=== PATIENT | female | born 1965 | race Caucasian/White ===

== ENCOUNTER → 2017-02-02 | Outpatient (CLI) | payer BC ==
--- NOTE | 2017-02-06 08:27 | MM ---
Reason for exam: screening (asymptomatic). Last mammogram was performed 1 year and 10 months ago. Physical Findings: A clinical breast exam by your physician is recommended on an annual basis and results should be correlated with mammographic findings. MG Screening Mammo w CAD Bilateral CC and MLO view(s) were taken. Prior study comparison: March 24, 2015, bilateral MG screening mammo w CAD. January 22, 2014, bilateral MG foundation screening mammo. The breast tissue is heterogeneously dense. This may lower the sensitivity of mammography. No significant changes when compared with prior studies. ASSESSMENT: Benign, BI-RAD 2 RECOMMENDATION: Routine screening mammogram of both breasts in 1 year.
== END | disposition home or self-care (01) ==
LOC: RADMAMWWP 12:56
PROVIDERS: ATTEND Family Medicine
DX: Z12.31 Encounter for screening mammogram for malignant neoplasm of breast (principal)

== ENCOUNTER 2017-08-31 13:32 | Observation (INO) | payer BC ==
[2017-08-31 14:16] LABS: Basophils % (A) 0 %; Eosinophils % (A) 1 %; HCT 41.5 % (34.0-46.0); HGB 14.2 gm/dL (11.4-16.0); Lymphocytes # (A) 1.2 k/uL (1.0-4.8); Lymphocytes % (A) 14 %; MCH 30.5 pg (25.0-35.0); MCHC 34.2 g/dL (31.0-37.0); MCV 89.1 fL (80.0-100.0); Mean Platelet Volume 6.7; Monocytes # (A) 0.2 k/uL (0-1.0); Monocytes % (A) 3 %; Neutrophils # (A) 7.1 k/uL (1.3-7.7); Neutrophils % (A) 83 %; Platelet Count 259 k/uL (150-450); RBC 4.65 m/uL (3.80-5.40); RDW 13.5 % (11.5-15.5); WBC 8.6 k/uL (3.8-10.6)
[2017-08-31 14:26] LABS: ALT 33 U/L (9-52); AST 22 U/L (14-36); Albumin 4.5 g/dL (3.5-5.0); Alkaline Phosphatase 49 U/L (38-126); Anion Gap 13 mmol/L; Blood Urea Nitrogen 13 mg/dL (7-17); Calcium 9.8 mg/dL (8.4-10.2); Carbon Dioxide 25 mmol/L (22-30); Chloride 101 mmol/L (98-107); Glucose 102 mg/dL (74-99); Sodium 139 mmol/L (137-145); Total Bilirubin 0.5 mg/dL (0.2-1.3); Total Protein 7.3 g/dL (6.3-8.2)
[2017-08-31 14:34] LABS: Creatine Kinase 82 U/L (30-135)
[2017-08-31 14:36] LABS: Partial Thromboplastin Time 23.4 sec (22.0-30.0)
[2017-08-31 14:47] LABS: Creatine Kinase MB 0.5 ng/mL (0.0-2.4); Troponin I <0.012 ng/mL (0.000-0.034)
--- NOTE | 2017-08-31 16:27 | XR ---
EXAMINATION TYPE: XR chest 2V DATE OF EXAM: 08/31/2017 COMPARISON: NONE HISTORY: Chest pain TECHNIQUE: Frontal and lateral views of the chest are obtained. FINDINGS: There is no focal air space opacity, pleural effusion, or pneumothorax seen. The cardiac silhouette size is within normal limits. The osseous structures are intact. And minimal multilevel degenerative change of the thoracic spine is noted. IMPRESSION: No acute cardiopulmonary process.
[2017-08-31] MEDS ORDERED: cloNIDine HCL 0.2 MG TAB PO STA (16:38)
--- NOTE | 2017-08-31 16:39 | ED ---
Chest Pain HPI - General Chief Complaint: Chest Pain Stated Complaint: High BP/chest pressure-sent by [facility] Time Seen by Provider: 08/31/17 15:23 Source: patient, RN notes reviewed, old records reviewed Mode of arrival: wheelchair Limitations: no limitations - History of Present Illness Initial Comments: 51-year-old female presents emergency room today chief complaint of feeling like there is a heaviness on her chest. She reports it started this morning at 9 AM. She states that she is went throughout her day and visited with friends. Continue to have this feeling like there was a hand sitting on her chest. She went to [employer] she sent her here. She reports she is a history of high blood pressure. Family history of heart disease. Nonsmoker. Patient has been taking her blood pressure medication as prescribed. She reports that she felt like she had remind herself to take breasts however she denies any shortness of breath or any nausea or vomiting or diaphoresis. She reports that she's been having occasional fluttering sensations in her chest. - Related Data Home Medications Medication Instructions Recorded Confirmed Metoprolol Tartrate 25 mg PO HS 03/04/15 08/31/17 Ergocalciferol [Vitamin D2] 50,000 unit PO MO 08/31/17 08/31/17 [place]-3 Fatty Acids/Fish Oil [Fish 1 cap PO DAILY 08/31/17 08/31/17 Oil 1,000 mg Softgel] Rosuvastatin Calcium [Crestor] 5 mg PO HS 08/31/17 08/31/17 Allergies Allergy/AdvReac Type Severity Reaction Status Date / Time No Known Allergies Allergy Verified 08/31/17 15:56 Review of Systems ROS Statement: Those systems with pertinent positive or pertinent negative responses have been documented in the HPI. ROS Other: All systems not noted in ROS Statement are negative. EKG Findings - EKG Comments: EKG Findings:: Normal sinus rhythm. Normal EKG. Ventricular rate of 72 bpm. ME interval is 198. QRS duration 92. QTQTC is 400/4:30 milliseconds. No evidence of ST elevation or T-wave inversion. Past Medical History Past Medical History: GERD/Reflux History of Any Multi-Drug Resistant Organisms: None Reported Past Surgical History: Section, Orthopedic Surgery Past Psychological History: No Psychological Hx Reported Smoking Status: Never smoker Past Alcohol Use History: Rare Past Drug Use History: None Reported General Exam - General Exam Comments Initial Comments: 51-year-old female. Alert and oriented. Limitations: no limitations General appearance: alert, in no apparent distress Head exam: Present: atraumatic, normocephalic, normal inspection Eye exam: Present: normal appearance, PERRL, EOMI. Absent: scleral icterus, conjunctival injection, periorbital swelling ENT exam: Present: normal exam, mucous membranes moist Neck exam: Present: normal inspection Respiratory exam: Present: normal lung sounds bilaterally. Absent: respiratory distress, wheezes, rales, rhonchi, stridor Cardiovascular Exam: Present: regular rate, normal rhythm, normal heart sounds. Absent: systolic murmur, diastolic murmur, rubs, gallop, clicks GI/Abdominal exam: Present: soft, normal bowel sounds. Absent: distended, tenderness, guarding, rebound, rigid Extremities exam: Present: normal inspection, full ROM, normal capillary refill. Absent: tenderness, pedal edema, joint swelling, calf tenderness Back exam: Present: normal inspection Neurological exam: Present: alert, oriented X3, CN II-XII intact Course Vital Signs 08/31/17 08/31/17 08/31/17 13:42 16:13 17:00 Temperature 98.2 F Pulse Rate 73 75 68 Respiratory 20 20 20 Rate Blood Pressure 181/84 269/84 180/90 O2 Sat by Pulse 99 98 100 Oximetry 08/31/17 08/31/17 08/31/17 17:30 18:00 18:53 Temperature 98.4 F Pulse Rate 72 79 71 Respiratory 20 20 20 Rate Blood Pressure 182/87 175/70 120/67 O2 Sat by Pulse 100 100 99 Oximetry Chest Pain MDM - MDM 51-year-old female presents raise her to plan of chest pain. She reports that there is pressure some his hand resting on her heart for the past day. The second EKG shows no acute changes. Initial cardiac enzymes are normal. She did have a history of protocol. We repeated a troponin when she came back to emergency room. This was also negative. Patient continues to complain of some minor discomfort in the chest. I discussed with history of hypertension and family history of heart disease she has risk factors for further evaluation for her heart. Discussed case with Dr. Kramer. He discussed with patient's PCP Dr. Werner. Magda the patient for observation. Repeat troponins. Consult to cardiology. Disposition Clinical Impression: Hypertension, Chest pain Disposition: ADMITTED IP TO THIS HOSP Condition: Stable Is patient prescribed a controlled substance at d/c from ED?: No If prescribed controlled substance>3 days was MAPS reviewed?: No When asked, does pt state using other controlled substances?: No Time of Disposition: 18:42
[2017-08-31] MEDS: SODIUM CHLORIDE 0.9% 1,000 ML IV SCH (17:06)
[2017-08-31] MEDS ORDERED: NALOXONE 0.4 MG/ML 1 ML VIAL IV PRN (18:43)
[2017-08-31] MEDS ORDERED: KETOROLAC 30 MG/ML 1 ML VIAL IVP PRN (18:43)
[2017-08-31] MEDS ORDERED: MORPHINE SULFATE 4 MG/ML SYRINGE IV PRN (18:43)
[2017-08-31] MEDS ORDERED: IBUPROFEN 400 MG TAB PO PRN (18:43)
[2017-08-31] MEDS ORDERED: LORazepam 2 MG/ML INJ IV PRN (18:43)
[2017-08-31] MEDS ORDERED: ACETAMINOPHEN TAB 325 MG TAB PO PRN (18:43)
[2017-08-31] MEDS ORDERED: ONDANSETRON 4 MG/2 ML VIAL IVP PRN (18:43)
[2017-08-31] MEDS ORDERED: METOPROLOL TARTRATE 25 MG TAB PO SCH (21:00)
[2017-08-31] MEDS ORDERED: ATORVASTATIN 10 MG TAB PO SCH (21:00)
[2017-09-01 03:21] LABS: Creatine Kinase 61 U/L (30-135)
[2017-09-01 03:34] LABS: Creatine Kinase MB 0.3 ng/mL (0.0-2.4); Troponin I <0.012 ng/mL (0.000-0.034)
[2017-09-01] MEDS: SODIUM CHLORIDE 0.9% 1,000 ML IV SCH (05:30)
[2017-09-01 08:01] VITALS: RESP 16
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
[2017-09-01] MEDS ORDERED: PANTOPRAZOLE 40 MG/10 ML VIAL IV SCH (09:00)
[2017-09-01] MEDS ORDERED: NON-FORMULARY DRUG (Omega-3 Fatty Acids/Fish Oil [Fish Oil 1,000 Mg Softgel] 1 CAP) PO SCH (09:00)
[2017-09-01] MEDS ORDERED: LOSARTAN 50 MG TAB PO SCH (09:00)
--- NOTE | 2017-09-01 09:43 | ECHOF ---
Referral Reason: MEASUREMENTS -------- HEIGHT: 157.5 cm WEIGHT: 81.6 kg BP: 144/81 IVSd: 1.1 cm (0.6 - 1.1) LVIDd: 3.0 cm (3.9 - 5.3) LVPWd: 1.1 cm (0.6 - 1.1) IVSs: 1.4 cm LVIDs: 2.0 cm LVPWs: 1.4 cm LAESV Index (A-L): 19.88 ml/m Ao Diam: 3.4 cm (2.0 - 3.7) AV Cusp: 2.3 cm (1.5 - 2.6) LA Diam: 2.4 cm (2.7 - 3.8) MV EXCURSION: 13.189 mm (> 18.000) MV EF SLOPE: 81 mm/s (70 - 150) EPSS: 0.3 cm MV E Akash: 0.76 m/s MV DecT: 181 ms MV A Akash: 1.12 m/s MV E/A Ratio: 0.68 RAP: 5.00 mmHg RVSP: 11.05 mmHg FINDINGS -------- Sinus rhythm. This was a technically good study. The left ventricular size is normal. Left ventricular wall thickness is normal. Overall left vent ricular systolic function is normal with, an EF between 55 - 60 %. The right ventricle is normal in size and function. The left atrium is normal in size. The right atrium is normal in size. The aortic valve is trileaflet, and appears structurally normal. No aortic stenosis or regurgitation. Mild mitral regurgitation is present. Trace tricuspid regurgitation present. The right ventricular systolic pressure, as measured by Dopp ler, is 11.05mmHg. Pulmonic valve appears structurally normal. The aortic root size is normal. The pericardium is normal. CONCLUSIONS -------- 1. Sinus rhythm. 2. This was a technically good study. 3. The left ventricular size is normal. 4. Left ventricular wall thickness is normal. 5. Overall left ventricular systolic function is normal with, an EF between 55 - 60 %. 6. The right ventricle is normal in size and function. 7. The left atrium is normal in size. 8. The right atrium is normal in size. 9. The aortic valve is trileaflet, and appears structurally normal. No aortic stenosis or regurgitati on. 10. Mild mitral regurgitation is present. 11. Trace tricuspid regurgitation present. 12. The right ventricular systolic pressure, as measured by Doppler, is 11.05mmHg. 13. Pulmonic valve appears structurally normal. 14. The aortic root size is normal. 15. The pericardium is normal. HIM CLERK: Debbie Ross RDCS
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
[2017-09-01] MEDS ORDERED: MORPHINE ORAL SOLN 10 MG/5 ML CUP PO PRN (10:25)
[2017-09-01 11:47] VITALS: BP 115/72; PULSE 62; TEMP 97.5
[2017-09-04] MEDS ORDERED: ERGOCALCIFEROL 50,000 UNIT CAP PO SCH (12:00)
--- NOTE | 2017-09-27 16:02 | HP ---
HISTORY AND PHYSICAL HISTORY AND PHYSICAL AND DISCHARGE SUMMARY: DATE OF ADMISSION: 08/31/2017 through the emergency department. DATE PATIENT WAS SEEN AND DISCHARGED: 09/01/2017 Patient is a pleasant 51-year-old white female who was admitted through the hospital emergency room and sent by [facility]. The patient apparently was having a knife-like feeling and heaviness in her chest since 9 a.m. and she went throughout the day and this continued. It was like someone was sitting on her chest when she thought she should go to the urgent care setting. They saw her and reported that she had elevated blood pressure with family history of heart disease. They sent her to the emergency department for further evaluation. She denied any shortness of breath, nausea, vomiting, diaphoresis. She has had flutters in the past but has not had any recent reported problems. MEDICATIONS: Her medications include: 1. Metoprolol. 2. Vitamin D. 3. Fish oil. 4. Crestor. ALLERGIES: NO KNOWN DRUG ALLERGIES. PAST MEDICAL HISTORY: 1. Gastroesophageal reflux disease. 2. Hypertension. 3. Hyperlipidemia. SOCIAL: She denies any smoking. Rare use of alcohol. Denies any drugs. PSYCHOLOGICAL: She denies any reported history of anxiety or panic attacks. REVIEW OF SYSTEMS: She denies any abdominal pain. She denies any stroke or paralysis. Review of systems is otherwise unremarkable. PHYSICAL EXAMINATION: Patient is alert and oriented x3. HEENT: Head is normocephalic and atraumatic. NECK: Supple. No JVD. HEART: Regular rate and rhythm. LUNGS: Clear to auscultation. ABDOMEN: Soft, nontender. No rebound, rigidity, guarding. EXTREMITIES: No cyanosis, clubbing or jaundice. NEUROLOGICAL: Cranial nerves 2 through 12 are grossly intact. Back is without rashes or any signs of shingles. Skin is warm and dry to palpation. IMPRESSIONS: 1. Acute atypical chest pain. 2. Hypertension urgency and uncontrolled. 3. Hyperlipidemia. PLAN: Admit patient with serial EKGs and enzymes already in progress. Full cardiac consultation and workup in progress. DISCHARGE SUMMARY: Patient Ciara Edwards was admitted for the above diagnosis. She underwent a 2D echo and Doppler and her blood pressure medications were adjusted. She is to take losartan by mouth 100 mg daily and we discontinued metoprolol and Catapres. She is to remain on Crestor. FINAL DIAGNOSES: 1. Resolved atypical chest pain. 2. Improved uncontrolled hypertension. 3. Hyperlipidemia. DISCHARGE MEDICATIONS: 1. Losartan 100 mg once daily. 2. Vitamin D. 3. Crestor 5 mg at bedtime. 4. Fish oil once daily. She is to stop metoprolol 25 mg. The patient understood both written and verbal instructions. She is to follow up with me in the office in one week and follow up with Cardiology, Dr. Lentz, on 09/13/2017. MMODL / IJN: [id number] /
== END 2017-09-01 13:09 | disposition home or self-care (01) ==
LOC: EC 13:32 → 3OBS 18:19
PROVIDERS: ADMIT Family Medicine; ATTEND Family Medicine
DX: R07.89 Other chest pain (principal); R06.02 Shortness of breath; R42 Dizziness and giddiness; I16.0 Hypertensive urgency; I10 Essential (primary) hypertension; E66.9 Obesity, unspecified; Z68.33 Body mass index [BMI] 33.0-33.9, adult; I49.8 Other specified cardiac arrhythmias; E78.5 Hyperlipidemia, unspecified; M54.2 Cervicalgia; K21.9 Gastro-esophageal reflux disease without esophagitis; G89.29 Other chronic pain; Z82.49 Family history of ischemic heart disease and other diseases of the circulatory system; Z83.3 Family history of diabetes mellitus; Z82.5 Family history of asthma and other chronic lower respiratory diseases; Z80.8 Family history of malignant neoplasm of other organs or systems; Z79.899 Other long term (current) drug therapy; Z79.1 Long term (current) use of non-steroidal anti-inflammatories (NSAID)
CPT/HCPCS: 99285 ×2; 96360 ×2; 96361 ×2; 36415; 93005; 93306; 85379; 83880; 80053; 82088; 82550 ×2; 82553 ×2; 84484 ×2; 85025; 85610; 85730; 71046; G0378 ×2

== ENCOUNTER → 2018-05-31 | Outpatient (CLI) | payer BC ==
--- NOTE | 2018-05-31 14:53 | XR ---
Cervical spine HISTORY: Pain 5 views of the cervical spine There is multilevel spondylosis. Reversal the normal cervical lordosis could be due to muscle spasm. Cervical vertebral bodies show preserved height, alignment, bone mineralization. Some mild loss of di sc height present at C5-6. No significant foraminal encroachment. IMPRESSION: Degenerative disc disease.
== END | disposition home or self-care (01) ==
LOC: RADXRMAIN 13:25
PROVIDERS: ATTEND Family Medicine
DX: M50.30 Other cervical disc degeneration, unspecified cervical region (principal)
CPT/HCPCS: 72050

== ENCOUNTER 2018-12-13 17:51 | Emergency (ER) | payer BC ==
[2018-12-13] MEDS ORDERED: SODIUM CHLORIDE 0.9% 1,000 ML IV STA (18:45)
--- NOTE | 2018-12-13 19:51 | XR ---
EXAMINATION TYPE: XR chest 2V DATE OF EXAM: 12/13/2018 COMPARISON: 08/31/2017 HISTORY: Neck pain. Back pain TECHNIQUE: Frontal and lateral views of the chest are obtained. FINDINGS: Heart and mediastinum are normal. Lungs are clear. Diaphragm is normal. Bony thorax is int act. There is old left clavicle fracture. There are chest leads. IMPRESSION: No cardiopulmonary disease. No change.
[2018-12-13 19:58] LABS: Basophils % (A) 0 %; Eosinophils # (A) 0.1 k/uL (0-0.7); Eosinophils % (A) 1 %; HCT 38.6 % (34.0-46.0); HGB 13.1 gm/dL (11.4-16.0); Lymphocytes # (A) 1.9 k/uL (1.0-4.8); Lymphocytes % (A) 28 %; MCH 30.2 pg (25.0-35.0); MCHC 33.9 g/dL (31.0-37.0); Mean Platelet Volume 6.9; Monocytes # (A) 0.2 k/uL (0-1.0); Monocytes % (A) 4 %; Neutrophils # (A) 4.4 k/uL (1.3-7.7); Neutrophils % (A) 65 %; Platelet Count 271 k/uL (150-450); RBC 4.33 m/uL (3.80-5.40); RDW 14.5 % (11.5-15.5); WBC 6.8 k/uL (3.8-10.6)
[2018-12-13 20:07] LABS: INR 0.9 (<1.2); Partial Thromboplastin Time 25.6 sec (22.0-30.0)
[2018-12-13 20:14] LABS: ALT 26 U/L (9-52); AST 24 U/L (14-36); African American GFR (CKD) >90 (>60 ml/min/1.73 sqM); Albumin 4.2 g/dL (3.5-5.0); Alkaline Phosphatase 44 U/L (38-126); Anion Gap 8 mmol/L; Blood Urea Nitrogen 15 mg/dL (7-17); Calcium 9.3 mg/dL (8.4-10.2); Carbon Dioxide 27 mmol/L (22-30); Chloride 94 mmol/L (98-107); Glucose 93 mg/dL (74-99); Magnesium 1.8 mg/dL (1.6-2.3); Sodium 129 mmol/L (137-145); Total Bilirubin 0.7 mg/dL (0.2-1.3)
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
[2018-12-13 22:01] VITALS: BP 133/81; PULSE 76; RESP 18; TEMP 98.5
== END 2018-12-13 21:56 | disposition home or self-care (01) ==
LOC: EC 17:51
DX: I10 Essential (primary) hypertension (principal); E87.1 Hypo-osmolality and hyponatremia; E78.5 Hyperlipidemia, unspecified; Z79.899 Other long term (current) drug therapy
CPT/HCPCS: 36415; 71046; 80053; 83735; 84443; 84484; 85025; 85610; 85730; 93005; 96360; 99284

== ENCOUNTER → 2018-12-14 | Outpatient (CLI) | payer BC ==
[2018-12-14 18:38] LABS: African American GFR (CKD) 113.8 (60.0-200.0); Anion Gap 8.1 mmol/L (4.00-12.00); BUN/Creat Ratio 18.57 Ratio (12.00-20.00); Calcium 9.4 mg/dL (8.7-10.3); Carbon Dioxide 28.9 mmol/L (21.6-31.8); Potassium 4.2 mmol/L (3.5-5.5)
[2018-12-14 18:39] LABS: Chol/HDL Ratio 2.65; LDL Cholesterol,Calculated 91.6 mg/dL (0.0-131.0); VLDL Calculation 15.4 mg/dL (5.00-40.00)
== END | disposition home or self-care (01) ==
LOC: LABWHC1 14:39
PROVIDERS: ATTEND Physician Assistant
DX: I10 Essential (primary) hypertension (principal); E78.5 Hyperlipidemia, unspecified
CPT/HCPCS: 36415; 80048; 80061

== ENCOUNTER → 2019-05-08 | Outpatient (CLI) | payer BC ==
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
--- NOTE | 2019-05-09 13:28 | MM ---
Reason for exam: screening (asymptomatic). Last mammogram was performed 2 years and 3 months ago. Physical Findings: A clinical breast exam by your physician is recommended on an annual basis and results should be correlated with mammographic findings. MG Screening Mammo w CAD Bilateral CC and MLO view(s) were taken. Prior study comparison: February 02, 2017, bilateral MG screening mammo w CAD. March 24, 2015, bilateral MG screening mammo w CAD. There are scattered fibroglandular densities. No significant changes when compared with prior studies. ASSESSMENT: Negative, BI-RAD 1 RECOMMENDATION: Routine screening mammogram of both breasts in 1 year.
== END | disposition home or self-care (01) ==
LOC: RADMAMWWP 08:32
PROVIDERS: ATTEND Family Medicine
DX: Z12.31 Encounter for screening mammogram for malignant neoplasm of breast (principal); Z78.0 Asymptomatic menopausal state
CPT/HCPCS: 77067; 77080

== ENCOUNTER → 2019-11-13 | Outpatient (CLI) | payer BC ==
--- NOTE | 2019-11-13 19:59 | CT ---
EXAMINATION TYPE: CT angio chest DATE OF EXAM: 11/13/2019 COMPARISON: None available HISTORY: Thoracic aortic aneurysm w/out rupture. Pt states an US showed dilation at aortic root. No c omplaints. No sx to chest CT DLP: 221.60 mGycm Automated exposure control for dose reduction was used. CONTRAST: CTA scan of the thorax is performed with IV Contrast, patient injected with 100 mL of Isovue 370, pul monary embolism protocol. MIP images are created and reviewed. 3D reconstructed images are created on an independent workstation and reviewed. FINDINGS: LUNGS: The lungs are grossly clear, there is no concerning parenchymal mass or nodule identified. T here is no pleural effusion or pneumothorax seen. The tracheobronchial tree is patent. AORTA: Aortic root measures approximately 4.5 cm in transverse dimension, proximal ascending aorta m easures approximately 4.3 cm, proximal descending aorta 2.5 cm, aorta at the level of the hiatus emilio ures 2 cm.. MEDIASTINUM: There is satisfactory enhancement of the pulmonary artery and its branches, there is no CT evidence for pulmonary embolism. There are no greater than 1 cm hilar or mediastinal lymph nodes. No pericardial effusion is seen. OTHER: There is thoracic spondylosis.. IMPRESSION: AORTIC ANEURYSM DESCRIBED.
== END | disposition home or self-care (01) ==
LOC: RADCTMAIN 18:53
PROVIDERS: ATTEND Internal Medicine Interventional Cardiology
DX: I71.2 Thoracic aortic aneurysm, without rupture (principal)
CPT/HCPCS: 71275; Q9967

== ENCOUNTER → 2020-07-16 | Outpatient (CLI) | payer BC ==
--- NOTE | 2020-07-16 11:32 | CT ---
EXAMINATION TYPE: CT iac w con DATE OF EXAM: 07/16/2020 COMPARISON: None HISTORY: Tinnitis and pressure in head CT DLP: 150 mGycm Automated exposure control for dose reduction was used. CONTRAST: CT scan of the IACs is performed with IV Contrast, patient injected with 100 mL of Isovue 300. FINDINGS: The external auditory canals are patent bilaterally. Mastoid air cells show no evidence of abnormal opacification bilaterally. The middle ear ossicles are symmetric and unremarkable. There is no evidence of suspicious surrounding soft tissue density to suggest cholesteatoma. The scutum is preserved bilaterally. The cochlea and the semicircular canals are symmetric and unremarkable. Ves tibular aqueduct and internal carotid canal appear unremarkable. Temporomandibular joints are mainta ined bilaterally. IMPRESSION: No significant abnormality seen to account for patient's symptoms.
== END | disposition home or self-care (01) ==
LOC: RADCTMAIN 10:46
PROVIDERS: ATTEND Otolaryngology
DX: H93.19 Tinnitus, unspecified ear (principal)
CPT/HCPCS: 70481; Q9967

== ENCOUNTER → 2020-08-05 | Outpatient (CLI) | payer BC ==
--- NOTE | 2020-08-06 11:22 | MM ---
Reason for exam: screening (asymptomatic). Last mammogram was performed 1 year and 3 months ago. Physical Findings: A clinical breast exam by your physician is recommended on an annual basis and results should be correlated with mammographic findings. MG Screening Mammo w CAD Bilateral CC and MLO view(s) were taken. Prior study comparison: May 08, 2019, bilateral MG screening mammo w CAD. February 02, 2017, bilateral MG screening mammo w CAD. The breast tissue is heterogeneously dense. This may lower the sensitivity of mammography. There is no discrete abnormality. No significant changes when compared with prior studies. ASSESSMENT: Negative, BI-RAD 1 RECOMMENDATION: Routine screening mammogram of both breasts in 1 year.
== END | disposition home or self-care (01) ==
LOC: RADMAMWWP 15:13
PROVIDERS: ATTEND Family Medicine
DX: Z12.31 Encounter for screening mammogram for malignant neoplasm of breast (principal)
CPT/HCPCS: 77067

== ENCOUNTER 2021-02-24 23:14 | Emergency (ER) | payer BC ==
[2021-02-24 23:20] VITALS: RESP 20
[2021-02-24] MEDS ORDERED: SODIUM CHLORIDE 0.9% 1,000 ML IV STA (23:26)
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
[2021-02-25 00:31] LABS: Basophils % (A) 0 %; Eosinophils # (A) 0.2 k/uL (0-0.7); Eosinophils % (A) 2 %; HCT 40.8 % (34.0-46.0); Lymphocytes # (A) 2.1 k/uL (1.0-4.8); Lymphocytes % (A) 29 %; MCH 31.1 pg (25.0-35.0); MCHC 34.4 g/dL (31.0-37.0); MCV 90.4 fL (80.0-100.0); Mean Platelet Volume 7.3; Monocytes # (A) 0.4 k/uL (0-1.0); Monocytes % (A) 5 %; Neutrophils # (A) 4.7 k/uL (1.3-7.7); Neutrophils % (A) 63 %; Platelet Count 291 k/uL (150-450); RBC 4.51 m/uL (3.80-5.40); RDW 13.6 % (11.5-15.5); WBC 7.5 k/uL (3.8-10.6)
[2021-02-25 00:39] LABS: Appearance,Urine Clear (Clear); Bilirubin,Urine Negative (Negative); Blood,Urine Negative (Negative); Color,Urine Light Yellow; Glucose,Urine (UA) Negative (Negative); Ketones,Urine Negative (Negative); Leukocyte Esterase,Urine Moderate (Negative); Nitrite,Urine Negative (Negative); PH, Urine 6.5 (5.0-8.0); Protein,Urine Negative (Negative); RBC,Urine <1 /hpf (0-5); Specific Gravity,Urine 1.008 (1.001-1.035); Urobilinogen,Urine <2.0 mg/dL (<2.0); WBC,Urine 4 /hpf (0-5)
[2021-02-25 00:47] LABS: INR 0.9 (<1.2); Partial Thromboplastin Time 23.9 sec (22.0-30.0); Prothrombin Time 9.6 sec (9.0-12.0)
[2021-02-25 01:23] LABS: ALT 27 U/L (4-34); AST 36 U/L (14-36); African American GFR (CKD) >90 (>60 ml/min/1.73 sqM); Albumin 4.4 g/dL (3.5-5.0); Alkaline Phosphatase 61 U/L (38-126); Anion Gap 7 mmol/L; Blood Urea Nitrogen 22 mg/dL (7-17); Calcium 9.4 mg/dL (8.4-10.2); Carbon Dioxide 27 mmol/L (22-30); Chloride 101 mmol/L (98-107); Glucose 109 mg/dL (74-99); Magnesium 1.9 mg/dL (1.6-2.3); Non-African American GFR(CKD) >90 (>60 ml/min/1.73 sqM); Phosphorus 4.2 mg/dL (2.5-4.5); Potassium 4.1 mmol/L (3.5-5.1); Sodium 135 mmol/L (137-145); Total Bilirubin 0.3 mg/dL (0.2-1.3); Total Protein 7.3 g/dL (6.3-8.2)
[2021-02-25 02:09] VITALS: BP 137/82; PULSE 72; TEMP 97.4
== END 2021-02-25 02:09 | disposition home or self-care (01) ==
LOC: EC 23:14
DX: R00.2 Palpitations (principal); R07.9 Chest pain, unspecified; R00.0 Tachycardia, unspecified; I10 Essential (primary) hypertension; E78.5 Hyperlipidemia, unspecified; K21.9 Gastro-esophageal reflux disease without esophagitis
CPT/HCPCS: 36415; 80053; 81001; 83735; 83880; 84100; 84443; 84484; 85025; 85610; 85730; 93005; 99285

== ENCOUNTER → 2021-03-15 | Outpatient (CLI) | payer BC ==
[2021-03-15 17:56] LABS: HCT 42.2 % (37.2-46.3); HGB 13.7 g/dL (12.0-15.0); MCH 30.6 pg (27.0-32.0); MCHC 32.5 g/dL (32.0-37.0); MCV 94.4 fL (80.0-97.0); Mean Platelet Volume 9.7 fL (9.5-12.2); Platelet Count 284 X 10*3/uL (140-440); RBC 4.47 X 10*6/uL (4.10-5.20); RDW 12.9 % (11.5-14.5); WBC 3.71 X 10*3/uL (4.50-10.00)
[2021-03-15 20:34] LABS: Thyroid Peroxidase Antibodies <9.0 U/mL (0.0-33.0)
[2021-03-15 20:56] LABS: African American GFR (CKD) 102.7 (60.0-200.0); Albumin 4.6 g/dL (3.8-4.9); Albumin/Globulin Ratio 1.86 (1.60-3.17); Anion Gap 12.2 mmol/L (10.00-18.00); BUN/Creat Ratio 16.69 Ratio (12.00-20.00); Blood Urea Nitrogen 12.5 mg/dL (9.0-27.0); Calcium 9.5 mg/dL (8.7-10.3); Carbon Dioxide 25.7 mmol/L (20.0-27.5); Globulin 2.5 g/dL (1.6-3.3); Non-African American GFR(CKD) 88.6 (60.0-200.0); Potassium 4.2 mmol/L (3.5-5.5); T4, Free (Free Thyroxine) 1.02 ng/dL (0.800-1.800); Total Bilirubin 0.4 mg/dL (0.30-1.20); Total Protein 7.1 g/dL (6.2-8.2)
== END | disposition home or self-care (01) ==
LOC: LABWHC1 11:15
PROVIDERS: ATTEND Family Medicine
DX: Z00.00 Encounter for general adult medical examination without abnormal findings (principal); T57.0X1A Toxic effect of arsenic and its compounds, accidental (unintentional), initial encounter
CPT/HCPCS: 36415; 80053; 82175; 84439; 84443; 84481; 85027; 86376; 86800

== ENCOUNTER → 2021-10-06 | Outpatient (CLI) | payer BC ==
--- NOTE | 2021-10-07 11:08 | MM ---
Reason for Exam: Screening (asymptomatic). Last mammogram was performed 1 year(s) and 2 month(s) ago. Patient History: Menarche at age 10. First Full-Term at age 13. Postmenopausal. Risk Values: Chelsey 5 year model risk: 0.9%. NCI Lifetime model risk: 5.7%. Prior Study Comparison: 02/02/2017 Bilateral Screening Mammogram, [facility]. 05/08/2019 Bilateral Screening Mammogram, [facility]. 08/05/2020 Bilateral Screening Mammogram, [facility]. Tissue Density: The breast tissue is heterogeneously dense. This may lower the sensitivity of mammography. Findings: Analyzed By CAD. There is no suspicious group of microcalcifications or new suspicious mass in either breast. Overall Assessment: Negative, BI-RAD 1 Management: Screening Mammogram of both breasts in 1 year. A clinical breast exam by your physician is recommended on an annual basis and results should be correlated with mammographic findings. Electronically signed and approved by: Jayson Higuera M.D. Radiologis
== END | disposition home or self-care (01) ==
LOC: RADMAMWWP 09:49
PROVIDERS: ATTEND Family Medicine
DX: Z12.31 Encounter for screening mammogram for malignant neoplasm of breast (principal); Z78.0 Asymptomatic menopausal state
CPT/HCPCS: 77067

== ENCOUNTER 2022-05-09 12:55 | Emergency (ER) | payer BC ==
[2022-05-09 13:35] LABS: Appearance,Urine Clear (Clear); Bilirubin,Urine Negative (Negative); Blood,Urine Negative (Negative); Color,Urine Yellow; Glucose,Urine (UA) Negative (Negative); Ketones,Urine Negative (Negative); Leukocyte Esterase,Urine Negative (Negative); Nitrite,Urine Negative (Negative); Protein,Urine Negative (Negative); Specific Gravity,Urine 1.015 (1.001-1.035); Urobilinogen,Urine <2.0 mg/dL (<2.0)
[2022-05-09 14:11] VITALS: PULSE 61; RESP 16; TEMP 98
[2022-05-09 17:10] LABS: Basophils % (A) 0 %; Eosinophils % (A) 1 %; HCT 38.5 % (34.0-46.0); HGB 13.3 gm/dL (11.4-16.0); Lymphocytes # (A) 1.7 k/uL (1.0-4.8); Lymphocytes % (A) 30 %; MCH 30.9 pg (25.0-35.0); MCHC 34.4 g/dL (31.0-37.0); MCV 89.7 fL (80.0-100.0); Mean Platelet Volume 7.4; Monocytes # (A) 0.2 k/uL (0-1.0); Monocytes % (A) 4 %; Neutrophils # (A) 3.6 k/uL (1.3-7.7); Neutrophils % (A) 64 %; Platelet Count 250 k/uL (150-450); RBC 4.29 m/uL (3.80-5.40); RDW 13.2 % (11.5-15.5); WBC 5.6 k/uL (3.8-10.6)
[2022-05-09 17:29] LABS: ALT 58 U/L (4-34); AST 30 U/L (14-36); African American GFR (CKD) >90 (>60 ml/min/1.73 sqM); Albumin 4.4 g/dL (3.5-5.0); Alkaline Phosphatase 69 U/L (38-126); Anion Gap 6 mmol/L; Blood Urea Nitrogen 11 mg/dL (7-17); Calcium 9.1 mg/dL (8.4-10.2); Carbon Dioxide 27 mmol/L (22-30); Chloride 105 mmol/L (98-107); Glucose 95 mg/dL (74-99); Magnesium 1.9 mg/dL (1.6-2.3); Non-African American GFR(CKD) >90 (>60 ml/min/1.73 sqM); Potassium 4.1 mmol/L (3.5-5.1); Sodium 138 mmol/L (137-145); Total Bilirubin 0.5 mg/dL (0.2-1.3); Total Protein 7.1 g/dL (6.3-8.2)
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
[2022-05-09 18:07] VITALS: BP 152/78
== END 2022-05-09 18:05 | disposition home or self-care (01) ==
LOC: EC 12:55
DX: I10 Essential (primary) hypertension (principal); K21.9 Gastro-esophageal reflux disease without esophagitis; E78.5 Hyperlipidemia, unspecified; M19.90 Unspecified osteoarthritis, unspecified site; F41.9 Anxiety disorder, unspecified; Z91.018 Allergy to other foods; Z91.048 Other nonmedicinal substance allergy status; Z79.899 Other long term (current) drug therapy
CPT/HCPCS: 36415; 80053; 81003; 83735; 84484; 85025; 93005; 99284

== ENCOUNTER → 2022-08-17 | Outpatient (CLI) | payer BC ==
[2022-08-17 16:02] LABS: African American GFR (CKD) 98.8 (60.0-200.0); Anion Gap 12.1 mmol/L (10.00-18.00); BUN/Creat Ratio 15.73 Ratio (12.00-20.00); Blood Urea Nitrogen 12.1 mg/dL (9.0-27.0); Calcium 9.8 mg/dL (8.7-10.3); Carbon Dioxide 27.6 mmol/L (20.0-27.5); Magnesium 1.8 mg/dL (1.5-2.4); Non-African American GFR(CKD) 85.2 (60.0-200.0); Potassium 4.3 mmol/L (3.5-5.5)
== END | disposition home or self-care (01) ==
LOC: LABWHC1 08:22
PROVIDERS: ATTEND Internal Medicine Clinical Cardiac Electrophysiology
DX: E87.6 Hypokalemia (principal)
CPT/HCPCS: 36415; 80048; 83735

== ENCOUNTER → 2022-09-08 | Outpatient (CLI) | payer BC | END | disposition home or self-care (01) | LOC: LABWHC1 12:11 | PROVIDERS: ATTEND Nurse Practitioner Adult Health | DX: Z53.9 Procedure and treatment not carried out, unspecified reason (principal) ==

== ENCOUNTER 2022-09-10 16:24 | Observation (INO) | payer BC ==
[2022-09-10] MEDS ORDERED: NITROGLYCERIN OINT 1 INCH/GM PACKET TOPICAL STA (16:56)
[2022-09-10] MEDS ORDERED: ASPIRIN 81 MG PO STA (16:56)
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
--- NOTE | 2022-09-10 17:25 | XR ---
EXAMINATION TYPE: XR chest 2V DATE OF EXAM: 09/10/2022 5:18 PM COMPARISON: Chest radiographs from 12/13/2018. TECHNIQUE: XR chest 2V Frontal and lateral views of the chest. CLINICAL INDICATION:Female, 56 years old with history of Chest Pain; FINDINGS: Lungs/Pleura: There is no evidence of pleural effusion, focal consolidation, or pneumothorax. Pulmonary vascularity: Unremarkable. Heart/mediastinum: Cardiomediastinal silhouette is unremarkable. Musculoskeletal: No acute osseous pathology. IMPRESSION: No acute cardiopulmonary disease/process.
[2022-09-10 17:33] LABS: Basophils % (A) 0 %; Eosinophils # (A) 0.1 k/uL (0-0.7); Eosinophils % (A) 1 %; HCT 40.1 % (34.0-46.0); HGB 13.7 gm/dL (11.4-16.0); Lymphocytes % (A) 35 %; MCH 30.5 pg (25.0-35.0); MCHC 34.2 g/dL (31.0-37.0); MCV 89.4 fL (80.0-100.0); Mean Platelet Volume 7.3; Monocytes # (A) 0.3 k/uL (0-1.0); Monocytes % (A) 5 %; Neutrophils # (A) 3.2 k/uL (1.3-7.7); Neutrophils % (A) 57 %; Platelet Count 290 k/uL (150-450); RBC 4.48 m/uL (3.80-5.40); RDW 13.2 % (11.5-15.5); WBC 5.6 k/uL (3.8-10.6)
[2022-09-10 17:43] LABS: ALT 22 U/L (4-34); AST 25 U/L (14-36); African American GFR (CKD) >90 (>60 ml/min/1.73 sqM); Albumin 4.5 g/dL (3.5-5.0); Alkaline Phosphatase 54 U/L (38-126); Amylase 60 U/L (30-110); Anion Gap 8 mmol/L; Blood Urea Nitrogen 13 mg/dL (7-17); Calcium 9.1 mg/dL (8.4-10.2); Carbon Dioxide 27 mmol/L (22-30); Chloride 98 mmol/L (98-107); Glucose 111 mg/dL (74-99); INR 0.9 (<1.2); Lipase 217 U/L (23-300); Non-African American GFR(CKD) >90 (>60 ml/min/1.73 sqM); Partial Thromboplastin Time 23.7 sec (22.0-30.0); Potassium 3.7 mmol/L (3.5-5.1); Prothrombin Time 10.1 sec (9.0-12.0); Sodium 133 mmol/L (137-145); Total Bilirubin 0.4 mg/dL (0.2-1.3); Total Protein 7.2 g/dL (6.3-8.2)
[2022-09-10] MEDS ORDERED: NITROGLYCERIN SL TABS 0.4 MG TAB SUBLINGUAL PRN (19:14)
[2022-09-10] MEDS: ESCITALOPRAM 5 MG TAB PO SCH (23:45)
[2022-09-10] MEDS: ATORVASTATIN 20 MG TAB PO SCH (23:45)
[2022-09-10] MEDS: LATANOPROST 0.005% OPHTH DROPS 2.5 ML BTL LEFT EYE SCH (23:46)
[2022-09-10] MEDS: NITROGLYCERIN OINT 1 INCH/GM PACKET TOPICAL SCH (23:46)
[2022-09-11] MEDS: NITROGLYCERIN OINT 1 INCH/GM PACKET TOPICAL SCH (06:12)
[2022-09-11] MEDS: VALSARTAN 80 MG TAB PO SCH ×2 (08:24→20:45)
[2022-09-11] MEDS: ASPIRIN 325 MG TAB PO SCH (08:24)
[2022-09-11 09:19] LABS: Chol/HDL Ratio 2.36 Ratio; LDL Cholesterol,Calculated 64.6 mg/dL (0.0-131.0); VLDL Calculation 18.38 mg/dL (5.00-40.00)
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
--- NOTE | 2022-09-11 18:54 | P.PN ---
Subjective Progress Note Date: 09/11/22 56-year-old female presenting to the emergency department with chest discomfort. Onset of symptoms was several hours ago. Discomfort does worsen with exertion. Discomfort feels like tightness or heaviness. Discomfort was 7/10 however currently is only 2/10. Patient questions if she has mild associated dyspnea. No nausea. No diaphoresis. No history of similar symptoms previously. Patient does have history of bicuspid aortic valve. In the emergency department, patient had evaluation completed which included imaging and lab work. Chest x-ray was normal. EKG demonstrated normal sinus rhythm with first-degree block. Initial troponin was negative. D-dimer was less than 0.17. Due to patient's history and significant symptoms, she was admitted for further evaluation. Patient has a medical history that is significant for GERD, hyperlipidemia, and hypertension. She does not have a permanent surgical history. Today patient reports that she is still experiencing some mild substernal chest pain. She otherwise denies shortness of breath and palpitations. LABS: White count 5.6, hemoglobin 13.7, platelets 290, d-dimer less than 0.17, sodium 133, potassium 3.7, chloride 98, B1 13, creatinine 0.60, calcium 9.1, magnesium 2.0, troponin-less than 0.0123, BNP 41, triglycerides 91, cholesterol 144, LDL 64.6, HDL 61, TSH 1.97 EKG: Normal sinus rhythm with first-degree block IMAGING: Chest x-ray dated 09/10/2022 demonstrates no acute cardiopulmonary disease/process. Objective - Vital Signs Vital signs: Vital Signs Temp 97.9 F 09/11/22 07:00 Pulse 64 09/11/22 07:00 Resp 16 09/11/22 07:00 BP 113/65 09/11/22 07:00 Pulse Ox 98 09/11/22 07:00 FiO2 Intake & Output 09/10/22 09/11/22 09/11/22 18:59 06:59 18:59 Weight 78.018 kg 78.018 kg Other: # Voids 0 - Exam - Constitutional General appearance: Present: average body habitus, cooperative, no acute distress - EENT Eyes: Present: anicteric sclerae, EOMI, PERRLA, normal appearance ENT: Present: hearing grossly normal, normal oropharynx Ears: bilateral: normal - Neck Neck: Present: normal ROM. Absent: lymphadenopathy, rigidity, thyromegaly Carotids: negative: bruit present Thyroid: bilateral: normal size, negative: enlarged, nodule - Respiratory Respiratory: bilateral: CTA, negative: rales, rhonchi, wheezing - Cardiovascular Rhythm: regular Heart sounds: normal: S1, S2 Abnormal Heart Sounds: Absent: systolic murmur, diastolic murmur - Gastrointestinal General gastrointestinal: Present: normal bowel sounds, soft. Absent: distended, organomegaly, tenderness - Genitourinary Genitourinary Comment(s): deferred - Integumentary Integumentary: Present: normal turgor. Absent: jaundiced, rash, ulcer - Neurologic Neurologic: Present: CNII-XII intact. Absent: focal deficits - Musculoskeletal Musculoskeletal: Present: gait normal, strength equal bilaterally - Psychiatric Psychiatric: Present: A&O x's 3, appropriate affect, intact judgment & insight - Labs CBC & Chem 7: 09/10/22 17:04 09/10/22 17:04 Labs: Abnormal Lab Results - Last 24 Hours (Table) 09/10/22 09/10/22 Range/Units 17:04 17:04 Sodium 133 L (137-145) mmol/L Glucose 111 H (74-99) mg/dL HDL Cholesterol 61.00 H (40.00-60.00) mg/dL Assessment and Plan Assessment: 1. Chest pain rule out acute coronary syndrome - Patient had echocardiogram and stress test completed recently; results are not available - We will admit to telemetry and monitor EKG and trend troponin - Patient remains on aspirin, statins and beta blockers - Consult cardiology for further recommendations 2. EKG changes; second-degree AV block; baseline EKG is not available 3. Hypertension; metoprolol 12.5 mg twice a day; we'll losartan 80 mg twice a day 4. Hyperlipidemia; Lipitor 20 mg by mouth daily at bedtime 5. Gastroesophageal reflux disease; continue with home PPI 6. Anxiety/depression; Lexapro 2.5 mg by mouth daily at bedtime DVT prophylaxis; SCDs CODE STATUS; full code
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
[2022-09-11] MEDS: ESCITALOPRAM 5 MG TAB PO SCH (20:45)
[2022-09-11] MEDS: ATORVASTATIN 20 MG TAB PO SCH ×2 (20:45→21:31)
[2022-09-11] MEDS: LATANOPROST 0.005% OPHTH DROPS 2.5 ML BTL LEFT EYE SCH (20:46)
[2022-09-11] MEDS ORDERED: METOPROLOL SUCCINATE (ER) 25 MG TAB.ER.24H PO SCH (21:00)
[2022-09-11 21:13] VITALS: RESP 16
[2022-09-12 07:52] VITALS: BP 119/67; TEMP 97.5
[2022-09-12] MEDS: ASPIRIN 325 MG TAB PO SCH (08:07)
[2022-09-12] MEDS: VALSARTAN 80 MG TAB PO SCH (08:07)
[2022-09-12 09:15] LABS: African American GFR (CKD) 116.4 (60.0-200.0); Anion Gap 10.6 mmol/L (10.00-18.00); BUN/Creat Ratio 17.33 Ratio (12.00-20.00); Blood Urea Nitrogen 10.4 mg/dL (9.0-27.0); Calcium 9.2 mg/dL (8.7-10.3); Carbon Dioxide 24.4 mmol/L (20.0-27.5); Non-African American GFR(CKD) 100.5 (60.0-200.0); Potassium 4.4 mmol/L (3.5-5.5)
[2022-09-12 09:29] VITALS: PULSE 55
--- NOTE | 2022-09-12 12:07 | P.PN ---
Subjective Progress Note Date: 09/12/22 This is Chaka Quezada NP, I'm dictating on behalf of Dr. Lentz's H&P and A&P. Patient was interviewed and examined. Patient is a pleasant 56-year-old female who presented to the hospital with chest pain. Patient reports today that she's had no chest pain at all overnight. She has been walking the hallways without any issues. She has been unable to re-create the symptoms that brought her in the hospital originally. Patient had lab work completed which demonstrates a normal TSH, and hemoglobin A1c within normal limits. We contacted the office and obtain patient's records for her echocardiogram and stress test, both were normal with no acute abnormalities noted. GENERAL: Well-appearing, well-nourished and in no acute distress. NECK: Supple without JVD or thyromegaly. LUNGS: Breath sounds clear to auscultation bilaterally. Respiration equal and unlabored. No wheezes, rales or rhonchi. HEART: Regular rate and rhythm without murmurs, rubs or gallops. S1 and S2 heard. EXTREMITIES: Normal range of motion, no edema. No clubbing or cyanosis. Peripheral pulses intact and strong. VITALS: Temp 97.5, pulse 60, respirations 16, blood pressure 119/67, O2 saturation 99% on room air TELEMETRY: Normal sinus rhythm with first-degree block LABS: Sodium 141, potassium 4.4, chloride 106, B1 10.4, creatinine 0.6, calcium 9.2, hemoglobin A1c 5.8, TSH 1.97 IMPRESSION: 1. Chest pain, recent echo and stress test 2 months ago 2. First-degree AV block PLAN: Patient may continue valsartan, rosuvastatin, metoprolol, and aspirin at discharge. Patient may be discharged from a cardiology standpoint. 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 Thank you for allowing us to participate in the care of this patient. Objective - Vital Signs Vital signs: Vital Signs Temp 97.5 F L 09/12/22 07:00 Pulse 55 L 09/12/22 08:00 Resp 16 09/12/22 08:00 BP 119/67 09/12/22 07:00 Pulse Ox 99 09/12/22 07:00 FiO2 Intake & Output 09/11/22 09/12/22 09/12/22 18:59 06:59 18:59 Intake Total 118 Balance 118 Intake: Oral 118 Other: # Voids 1 1 - Labs CBC & Chem 7: 09/10/22 17:04 09/12/22 06:12
== END 2022-09-12 11:11 | disposition home or self-care (01) ==
LOC: EC 16:24 → 6NMEDSUR 19:15
PROVIDERS: ADMIT Internal Medicine; ATTEND Internal Medicine
DX: R07.89 Other chest pain (principal); I44.0 Atrioventricular block, first degree; Q23.1 Congenital insufficiency of aortic valve; I10 Essential (primary) hypertension; E78.5 Hyperlipidemia, unspecified; M19.90 Unspecified osteoarthritis, unspecified site; L21.9 Seborrheic dermatitis, unspecified; K21.9 Gastro-esophageal reflux disease without esophagitis; F32.A Depression, unspecified; F41.9 Anxiety disorder, unspecified; E66.9 Obesity, unspecified; Z68.31 Body mass index [BMI] 31.0-31.9, adult; Z79.899 Other long term (current) drug therapy; Z91.011 Allergy to milk products; Z91.048 Other nonmedicinal substance allergy status; Z87.81 Personal history of (healed) traumatic fracture; Z98.891 History of uterine scar from previous surgery; Z98.890 Other specified postprocedural states; Z82.49 Family history of ischemic heart disease and other diseases of the circulatory system; Z80.8 Family history of malignant neoplasm of other organs or systems
CPT/HCPCS: 99285; 36415; 93005; 85379; 83880; 80061; 80053; 80048; 84443; 82150; 83690; 83735; 84484; 85025; 85610; 85730; 83036; 71046; G0378 ×3

== ENCOUNTER → 2022-10-13 | Outpatient (CLI) | payer BC ==
--- NOTE | 2022-10-13 15:03 | BD ---
EXAMINATION TYPE: Axial Bone Density DATE OF EXAM: 10/13/2022 CLINICAL HISTORY: 56 years old Female. ICD-10 CODE: N81.0 OSTEOPOROSIS Height: 62.5 Weight: 173.6 FRAX RISK QUESTIONS: Alcohol (3 or more units per day): no Family History (Parent hip fracture): no Glucocorticoids (More than 3mos): no (Ex: prednisone, prednisolone, methylprednisolone, dexamethasone, and hydrocortisone). History of Fracture in Adulthood: yes Secondary Osteoporosis: 1. Type 1 Diabetes: no 2. Hyperthyroidism: no 3. Menopause before 45: no 4. Malnutrition: no 5. Chronic liver disease: no Rheumatoid Arthritis: no Current Tobacco Use: no RISK FACTORS HISTORY OF: Surgery to Spine/Hip(right/left)/Wrist (right/left): no Family History of Osteoporosis: yes Active: no Diet low in dairy products/other sources of calcium: no Postmenopausal woman: yes Lost more than 2 inches in height since high school: no Additional History: EXAM MEASUREMENTS: Bone mineral densitometry was performed using the [employer] System. Bone mineral density as measured about the Lumbar spine is: ----- L1-L4(G/cm2): 1.281 T Score Values are as follows: ----- L1: 1.2 ----- L2: 0.7 ----- L3: 1.1 ----- L4: 0.4 ----- L1-L4: 0.8 Z Score Values are as follows: ----- L1: 1.8 ----- L2: 1.3 ----- L3: 1.7 ----- L4: 1.0 ----- L1-L4: 1.5 Bone mineral density has: decreased -7.0 % since study of: 05.08.2019 Bone mineral density about the R hip (g/cm2): 1.019 Bone mineral density about the L hip (g/cm2): 1.004 T Score values are as follows: -----R Neck: -0.7 -----L Neck: -0.9 -----R Total: 0.1 -----L Total: 0.0 Z Score values are as follows: -----R Neck: 0.2 -----L Neck: -0.1 -----R Total: 0.6 -----L Total: 0.5 Bone mineral density has: decreased-5.5 % since study of: 05.08.2019 FRAX%s: The graph provided illustrates a 11.2% chance for a major osteoporotic fx and a 0.6% chance f or the hips probability for fx in 10 years time. IMPRESSION: Normal (Values between +1 and -1 indicate normal bone mass). Consider repeating this study in 5 year s or sooner if there is some new clinical indication. NOTE: T-SCORE=SD OF THE YOUNG ADULT MEAN.
--- NOTE | 2022-10-14 06:42 | MM ---
Reason for Exam: Screening (asymptomatic). Last screening mammogram was performed 12 month(s) ago. Patient History: Menarche at age 10. First Full-Term at age 13. Postmenopausal. Risk Values: Chelsey 5 year model risk: 1.0%. NCI Lifetime model risk: 5.6%. Prior Study Comparison: 05/08/2019 Bilateral Screening Mammogram, [facility]. 08/05/2020 Bilateral Screening Mammogram, [place]. 10/06/2021 Bilateral MG screening mammo w CAD, [facility]. Tissue Density: There are scattered fibroglandular densities. Findings: Analyzed By CAD. There is no suspicious group of microcalcifications or new suspicious mass in either breast. Overall Assessment: Negative, BI-RAD 1 Management: Screening Mammogram of both breasts in 1 year. . Patient should continue monthly self-breast exams. A clinical breast exam by your physician is recommended on an annual basis. This exam should not preclude additional follow-up of suspicious palpable abnormalities. Note on Chelsey scores and lifetime risk: 1. A Chelsey score greater than 3% is considered moderate risk. If this is the case, consider specialist referral to assess eligibility for a risk reducing agent. 2. If overall lifetime risk for the development of breast cancer is 20% or higher, the patient may qualify for future screening with alternating mammogram and breast MRI. Electronically signed and approved by: Dawson Renteria M.D.
== END | disposition home or self-care (01) ==
LOC: RADMAMWWP 13:22
PROVIDERS: ATTEND Nurse Practitioner
DX: Z12.31 Encounter for screening mammogram for malignant neoplasm of breast (principal); Z78.0 Asymptomatic menopausal state
CPT/HCPCS: 77067; 77080

== ENCOUNTER 2023-03-12 20:47 | Emergency (ER) | payer BC ==
[2023-03-12 21:02] VITALS: TEMP 97.7
[2023-03-12] MEDS ORDERED: SODIUM CHLORIDE 0.9% 500 ML 500 ML IV ONE (21:14)
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
[2023-03-12 21:32] LABS: Basophils % (A) 0 %; Eosinophils # (A) 0.1 k/uL (0-0.7); Eosinophils % (A) 2 %; Lymphocytes # (A) 3.6 k/uL (1.0-4.8); Lymphocytes % (A) 37 %; MCH 31.1 pg (25.0-35.0); MCHC 35.1 g/dL (31.0-37.0); MCV 88.6 fL (80.0-100.0); Mean Platelet Volume 7.2; Monocytes # (A) 0.5 k/uL (0-1.0); Monocytes % (A) 5 %; Neutrophils # (A) 5.2 k/uL (1.3-7.7); Neutrophils % (A) 55 %; Platelet Count 266 k/uL (150-450); RBC 4.52 m/uL (3.80-5.40); RDW 13.1 % (11.5-15.5); WBC 9.6 k/uL (3.8-10.6)
[2023-03-12 21:42] LABS: INR 0.9 (<1.2); Partial Thromboplastin Time 24.2 sec (22.0-30.0); Prothrombin Time 10.5 sec (10.0-12.5)
--- NOTE | 2023-03-12 21:44 | XR ---
EXAMINATION TYPE: XR chest 2V DATE OF EXAM: 03/12/2023 9:38 PM CLINICAL INDICATION:Female, 57 years old with history of Chest Pain; [facility] COMPARISON: Chest radiographs from 09/10/2022 TECHNIQUE: XR chest 2V Frontal and lateral views of the chest. FINDINGS: Lungs/Pleura: There is no evidence of pleural effusion, focal consolidation, or pneumothorax. Pulmonary vascularity: Unremarkable. Heart/mediastinum: Cardiomediastinal silhouette is unremarkable. Musculoskeletal: No acute osseous pathology. IMPRESSION: No acute cardiopulmonary disease/process.
[2023-03-12 21:46] LABS: ALT 23 U/L (4-34); African American GFR (CKD) >90 (>60 ml/min/1.73 sqM); Anion Gap 13 mmol/L; Blood Urea Nitrogen 17 mg/dL (7-17); Calcium 9.6 mg/dL (8.4-10.2); Carbon Dioxide 20 mmol/L (22-30); Chloride 94 mmol/L (98-107); Glucose 89 mg/dL (74-99); Non-African American GFR(CKD) >90 (>60 ml/min/1.73 sqM); Sodium 127 mmol/L (137-145)
[2023-03-12 22:11] LABS: AST 39 U/L (14-36); Albumin 4.9 g/dL (3.5-5.0); Alkaline Phosphatase 51 U/L (38-126); Magnesium 1.9 mg/dL (1.6-2.3); Potassium 4.9 mmol/L (3.5-5.1); Total Bilirubin 0.8 mg/dL (0.2-1.3); Total Protein 8.1 g/dL (6.3-8.2)
[2023-03-12 23:26] VITALS: BP 141/83; PULSE 54; RESP 16
== END 2023-03-12 23:14 | disposition home or self-care (01) ==
LOC: EC 20:47
DX: I10 Essential (primary) hypertension (principal); I44.0 Atrioventricular block, first degree; E78.5 Hyperlipidemia, unspecified; F41.9 Anxiety disorder, unspecified; Z20.822 Contact with and (suspected) exposure to COVID-19; Z79.899 Other long term (current) drug therapy; Z91.018 Allergy to other foods; Z88.8 Allergy status to other drugs, medicaments and biological substances
CPT/HCPCS: 36415; 71046; 80053; 83735; 84484; 85025; 85610; 85730; 87636; 93005; 99284

== ENCOUNTER → 2023-03-17 | Outpatient (CLI) | payer BC ==
--- NOTE | 2023-03-17 12:45 | US ---
EXAMINATION TYPE: US abdomen complete DATE OF EXAM: 03/17/2023 COMPARISON: NONE CLINICAL INDICATION: Female, 57 years old with history of K81.9 CHOLECYSTITIS, UNSPECIFIED; TECHNIQUE: Multiple sonographic images of the abdomen are obtained. FINDINGS: EXAM MEASUREMENTS: Liver Length: 16.9 cm Gallbladder Wall: 0.1 cm CBD: 0.3 cm Spleen: 10.2 cm Right Kidney: 11.9 x 4.1 x 5.3 cm Left Kidney: 11.8 x 6.0 x 5.5 cm MEDICINE ASSISTANT NOTES: unremarkable exam Pancreas: wnl Liver: wnl Gallbladder: wnl Evidence for sonographic Ely's sign: no CBD: wnl Spleen: wnl Right Kidney: wnl Left Kidney: wnl Upper IVC: wnl Abd Aorta: wnl The liver is homogenous. The intrahepatic portion of the IVC and proximal abdominal aorta are within normal limits. There is no evidence of cholelithiasis. Common bile duct is unremarkable. The visu alized portions of the pancreas are homogenous. The spleen is unremarkable. Kidneys are symmetric a nd free of hydronephrosis. No renal lesions are seen. IMPRESSION: Unremarkable abdominal ultrasound.
== END | disposition home or self-care (01) ==
LOC: RADUSWWP 07:13
PROVIDERS: ATTEND Family Medicine
DX: K81.9 Cholecystitis, unspecified (principal)
CPT/HCPCS: 76700

== ENCOUNTER → 2023-04-14 | Outpatient (CLI) | payer BC ==
--- NOTE | 2023-04-14 13:39 | CT ---
EXAMINATION TYPE: CT sinus wo con DATE OF EXAM: 04/14/2023 COMPARISON: None HISTORY: sinusitis, pressure CT DLP: 596.5 mGycm. Automated Exposure Control for Dose Reduction was Utilized. TECHNIQUE: CT scan of the sinuses is performed without contrast, axial images are obtained, coronal r eformatted images are also reviewed. FINDINGS: There is a small mucous retention cyst or polyp in the floor of the left maxillary sinus. There is mi nimal mucosal thickening of left maxillary sinus. The remaining paranasal sinuses are well aerated. There are no air-fluid levels to suggest acute sinusitis. The ostiomeatal calyces are patent bilaterally. The nasal cavity is intact. The intraorbital contents appear normal and symmetric. The mastoid air cells and middle ear cavities are well aerated. No osseous abnormalities are seen. IMPRESSION: Mild chronic sinusitis involving the left maxillary sinus with no other significant abnormality seen.
== END | disposition home or self-care (01) ==
LOC: RADCTMAIN 10:19
PROVIDERS: ATTEND Otolaryngology
DX: J32.0 Chronic maxillary sinusitis (principal)
CPT/HCPCS: 70486

== ENCOUNTER → 2023-12-25 | Outpatient (CLI) | payer BC ==
--- NOTE | 2023-12-26 17:07 | MM ---
Reason for Exam: Screening (asymptomatic). Last mammogram was performed 1 year(s) and 3 month(s) ago. Patient History: Menarche at age 10. First Full-Term at age 13. Postmenopausal. Risk Values: Chelsey 5 year model risk: 1.0%. NCI Lifetime model risk: 5.3%. Prior Study Comparison: 08/05/2020 Bilateral Screening Mammogram, [facility]. 10/06/2021 Bilateral MG screening mammo w CAD, [facility]. 10/13/2022 Bilateral MG screening mammo w CAD, [facility]. Tissue Density: There are scattered areas of fibroglandular density. Findings: Analyzed By CAD. Unchanged asymmetric densities on the left. There is no suspicious group of microcalcifications or new suspicious mass in either breast. Overall Assessment: Benign, BI-RAD 2 Management: Screening Mammogram of both breasts in 1 year. . Patient should continue monthly self-breast exams. A clinical breast exam by your physician is recommended on an annual basis. This exam should not preclude additional follow-up of suspicious palpable abnormalities. Note on Chelsey scores and lifetime risk: 1. A Chelsey score greater than 3% is considered moderate risk. If this is the case, consider specialist referral to assess eligibility for a risk reducing agent. 2. If overall lifetime risk for the development of breast cancer is 20% or higher, the patient may qualify for future screening with alternating mammogram and breast MRI. Electronically signed and approved by: Kaley Wong M.D. Radiologist
== END | disposition home or self-care (01) ==
LOC: RADMAMWWP 11:18
PROVIDERS: ATTEND Family Medicine
DX: Z12.31 Encounter for screening mammogram for malignant neoplasm of breast
CPT/HCPCS: 77067

== ENCOUNTER → 2024-08-01 | Outpatient (CLI) | payer BC ==
[2024-08-01 18:46] LABS: Basophils # (A) 0.03 X 10*3/uL (0.00-0.10); Basophils % (A) 0.5 %; Eosinophils # (A) 0.11 X 10*3/uL (0.04-0.35); Eosinophils % (A) 1.8 %; HCT 40.2 % (37.2-46.3); HGB 13.1 g/dL (12.0-15.0); Lymphocytes # (A) 1.93 X 10*3/uL (0.90-5.00); Lymphocytes % (A) 31.1 %; MCH 29.8 pg (27.0-32.0); MCHC 32.6 g/dL (32.0-37.0); MCV 91.6 FL (80.0-97.0); Mean Platelet Volume 9.6 FL (9.5-12.2); Monocytes # (A) 0.38 X 10*3/uL (0.20-1.00); Monocytes % (A) 6.1 %; NRBC Per 100 WBC 0 X 10*3/uL (0.00-0.01); Neutrophils # (A) 3.75 X 10*3/uL (1.80-7.70); Neutrophils % (A) 60.3 %; Platelet Count 293 X 10*3/uL (140-440); RBC 4.39 X 10*6/uL (4.10-5.20); RDW 12.7 % (11.5-14.5); WBC 6.21 X 10*3/uL (4.50-10.00)
[2024-08-01 19:18] LABS: % Iron Saturation 21.86 (12.00-45.00); ALT 21 U/L (8-44); AST 21 U/L (13-35); Albumin 4.4 g/dL (3.8-4.9); Albumin/Globulin Ratio 1.91 Ratio (1.60-3.17); Alkaline Phosphatase 57 U/L (41-126); BUN/Creat Ratio 22.83 Ratio (12.00-20.00); Blood Urea Nitrogen 13.7 mg/dL (9.0-27.0); Calcium 9.3 mg/dL (8.7-10.3); Carbon Dioxide 26.2 mmol/L (21.6-31.8); Chloride 97 mmol/L (96-109); Globulin 2.3 g/dL (1.6-3.3); Glucose 98 mg/dL (70-110); Iron 68 UG/DL (50-170); Potassium 4.1 mmol/L (3.5-5.5); Sodium 135 mmol/L (135-145); Total Bilirubin 0.2 mg/dL (0.3-1.2); Total Iron Binding Capacity 311 UG/DL (228-460); Total Protein 6.7 g/dL (6.2-8.2)
== END | disposition home or self-care (01) ==
LOC: LABWHC1 14:54
PROVIDERS: ATTEND Internal Medicine Clinical Cardiac Electrophysiology
DX: E78.5 Hyperlipidemia, unspecified (principal); I10 Essential (primary) hypertension; R53.83 Other fatigue
CPT/HCPCS: 36415; 80053; 82607; 82728; 83540; 83550; 83735; 84443; 84466; 85025